=== PATIENT | male | born 1975 | race Caucasian/White ===

== ENCOUNTER 2025-04-01 12:07 | Emergency (ER) | payer MEDICAID ==
[~2025-04-01] VITALS: Ht 167.6 cm; Wt 77.0 kg
[2025-04-01 12:08] VITALS: TEMP 36.9; O2SAT 99
[2025-04-01] MEDS ORDERED: LACTATED RINGERS 1,000 ML IV SCH (12:30)
[2025-04-01 12:50] LABS: CHLORIDE 99 mEq/L (98-107); POTASSIUM 4.3 mEq/L (3.5-5.1); SODIUM 134 mEq/L (136-145)
[2025-04-01 12:51] LABS: CALCIUM 9.9 mg/dL (8.7-10.4); CARBON DIOXIDE 24 mEq/L (21-32)
[2025-04-01 12:52] LABS: EOSINOPHILS % 1.4 % (0.0-5.0); HEMATOCRIT. 39.3 % (42.0-52.0); HEMOGLOBIN. 13.6 g/dL (14.0-18.0); LYMPHOCYTES % 19.5 % (20.0-50.0); MEAN CORPUSCULAR HEMOGLOBIN 31.4 pg (28.0-32.0); MEAN CORPUSCULAR HGB CONC 34.5 g/dL (31.0-37.0); MEAN CORPUSCULAR VOLUME 91.1 fL (80.0-94.0); MEAN PLATELET VOLUME 7.5 fl (7.4-10.4); MONOCYTES % 6.6 % (2.0-8.0); NEUTROPHILS % 71.5 % (40.0-76.0); PLATELET 269 x1000/uL (130-400); RED BLOOD CELL COUNT 4.32 mill/uL (4.7-6.1); RED CELL DISTRIBUTION WIDTH 14.5 % (11.6-14.6); WHITE BLOOD COUNT 7.3 x1000/uL (4.5-11.0)
[2025-04-01 12:56] LABS: CREATININE 1.3 mg/dL (0.6-1.3); TROPONIN I HIGH SENSITIVITY 42 ng/L (3.0-53); UREA NITROGEN BLOOD 17 mg/dL (9-23)
[2025-04-01 12:58] LABS: ALANINE AMINOTRANSFERASE 41 IU/L (10-49); ALBUMIN 4.7 g/dL (3.2-4.8); ASPARTATE AMINOTRANSFERASE 26 IU/L (<34); BETA HYDROXYBUTYRATE 0.1 mMol/L (0.0-0.3); BILIRUBIN TOTAL 0.9 mg/dL (0.1-1.0)
[2025-04-01] MEDS: LACTATED RINGERS 1,000 ML IV SCH (13:17)
[2025-04-01 14:15] LABS: GLUCOSE 359 mg/dL (70-105)
[2025-04-01 15:32] VITALS: BP 101/66; PULSE 85; RESP 18; O2SAT 100
== END 2025-04-01 15:34 | disposition home or self-care (01) ==
LOC: ER 12:12
DX: E11.65 Type 2 diabetes mellitus with hyperglycemia (principal); R53.1 Weakness; Z95.5 Presence of coronary angioplasty implant and graft; I25.10 Atherosclerotic heart disease of native coronary artery without angina pectoris; Z88.8 Allergy status to other drugs, medicaments and biological substances
CPT/HCPCS: 99284; 96360; 80053; 82010; 82962; 83690; 83735; 85025; 84484; 36415; 93005; J7030

== ENCOUNTER 2025-04-05 09:18 | Inpatient (IN) | payer MEDICAID, OTHER ==
[~2025-04-05] VITALS: Ht 162.6 cm; Wt 78.9 kg
[2025-04-05] MEDS: ASPIRIN 325MG TABLET PO ONE (10:11)
[2025-04-05] MEDS: LACTATED RINGERS 1,000 ML IV SCH (10:12)
[2025-04-05] MEDS: ACETAMINOPHEN 325MG TABLET PO ONE (10:12)
[2025-04-05 10:17] LABS: BASOPHILS % 0.8 % (0.0-2.0); EOSINOPHILS % 0.9 % (0.0-5.0); HEMATOCRIT. 38.4 % (42.0-52.0); HEMOGLOBIN. 12.7 g/dL (14.0-18.0); LYMPHOCYTES % 9.3 % (20.0-50.0); MEAN CORPUSCULAR HEMOGLOBIN 31.6 pg (28.0-32.0); MEAN CORPUSCULAR HGB CONC 33.2 g/dL (31.0-37.0); MEAN CORPUSCULAR VOLUME 95.4 fL (80.0-94.0); MEAN PLATELET VOLUME 8.1 fl (7.4-10.4); MONOCYTES % 4.1 % (2.0-8.0); NEUTROPHILS % 84.9 % (40.0-76.0); PLATELET 206 x1000/uL (130-400); RED BLOOD CELL COUNT 4.03 mill/uL (4.7-6.1)
[2025-04-05 10:30] LABS: CARBON DIOXIDE 23 mEq/L (21-32); CHLORIDE 97 mEq/L (98-107); POTASSIUM 5.3 mEq/L (3.5-5.1); SODIUM 128 mEq/L (136-145)
[2025-04-05 10:31] LABS: CALCIUM 8.5 mg/dL (8.7-10.4)
[2025-04-05 10:35] LABS: CREATININE 1.4 mg/dL (0.6-1.3)
[2025-04-05 10:36] LABS: UREA NITROGEN BLOOD 18 mg/dL (9-23)
[2025-04-05 10:37] LABS: ALANINE AMINOTRANSFERASE 41 IU/L (10-49); ALBUMIN 4.2 g/dL (3.2-4.8); ASPARTATE AMINOTRANSFERASE 28 IU/L (<34)
[2025-04-05 10:38] LABS: BETA HYDROXYBUTYRATE 0.3 mMol/L (0.0-0.3); BILIRUBIN DIRECT 0.1 mg/dL (<=3.0); BILIRUBIN TOTAL 0.4 mg/dL (0.1-1.0); PROTEIN TOTAL 6.3 g/dL (6.0-8.3)
[2025-04-05 10:47] LABS: GLUCOSE > 700 mg/dL (70-105); TROPONIN I HIGH SENSITIVITY 72 ng/L (3.0-53)
[2025-04-05] MEDS: INSULIN REGULAR (HUMULIN R) 1000UNITS/10ML VIAL IV ONE (12:29)
[2025-04-05 12:45] LABS: TROPONIN I HIGH SENSITIVITY 68 ng/L (3.0-53)
[2025-04-05 14:00] VITALS: BP 138/82; PULSE 102; RESP 20; TEMP 36.6
[2025-04-05] MEDS ORDERED: ALBU18HF2 (14:34)
[2025-04-05] MEDS ORDERED: INSU100I13 SUBCUT (14:34)
[2025-04-05] MEDS ORDERED: SERT25TA74 PO (14:34)
[2025-04-05] MEDS ORDERED: LISI10TA26 PO (14:34)
[2025-04-05] MEDS ORDERED: OLAN10TA72 PO (14:34)
[2025-04-05] MEDS ORDERED: ARIP5TAB51 PO (14:34)
[2025-04-05] MEDS ORDERED: METO25TA6 PO (14:34)
[2025-04-05] MEDS ORDERED: BENZ100C86 PO (14:34)
[2025-04-05] MEDS ORDERED: ATOR40TA70 PO (14:34)
[2025-04-05] MEDS ORDERED: ASPI-1406 PO (14:34)
[2025-04-05] MEDS ORDERED: CLOP75TA33 PO (14:34)
[2025-04-05] MEDS ORDERED: NITR0.4T49 SL (14:34)
[2025-04-05] MEDS ORDERED: LOSA25TA26 PO (14:34)
[2025-04-05] MEDS ORDERED: OLAN5TAB74 PO (14:34)
[2025-04-05] MEDS ORDERED: NAPR-1164 PO (14:34)
[2025-04-05] MEDS ORDERED: CARV3.1242 PO (14:34)
[2025-04-05] MEDS ORDERED: TICA90TA PO (14:34)
[2025-04-05] MEDS ORDERED: HYDR-3992 PO (14:34)
[2025-04-05] MEDS ORDERED: METF-416 PO (14:34)
[2025-04-05] MEDS ORDERED: ONDANSETRON HCL 4MG/2ML INJ IV PRN (14:45)
[2025-04-05] MEDS ORDERED: DEXTROSE 50% WATER 50ML SYRINGE IV PRN (14:45)
[2025-04-05 16:00] VITALS: BP 138/62; PULSE 102; RESP 20; TEMP 36.6; O2SAT 98
[2025-04-05] MEDS: INSULIN LISPRO 100 UNITS/ML SUBCUT SCH ×3 (16:31→18:10)
[2025-04-05] MEDS: INSULIN GLARGINE 100 UNITS/ML SUBCUT SCH ×2 (16:32→22:52)
[2025-04-05] MEDS: BLOOD SUGAR DIAGNOSTIC STRIP TEST SCH (17:40)
[2025-04-05 20:00] VITALS: BP 160/85; PULSE 104; RESP 19; TEMP 36.9; O2SAT 97
[2025-04-06] VITALS: BP 117/61; PULSE 101; RESP 18; TEMP 36.8; O2SAT 98
[2025-04-06 04:00] VITALS: BP 121/60; PULSE 99; RESP 17; TEMP 37
[2025-04-06 08:00] VITALS: BP 139/73; PULSE 96; RESP 18; TEMP 36.5; O2SAT 99
[2025-04-06] MEDS: CLOPIDOGREL 75MG TABLET PO SCH (10:47)
[2025-04-06] MEDS: ASPIRIN 81MG TABLET PO SCH (10:48)
[2025-04-06 12:00] VITALS: BP 118/65; PULSE 91; RESP 18; TEMP 36.5; O2SAT 99
[2025-04-06] MEDS ORDERED: TICAGRELOR 90 MG TABLET PO NR (12:00)
[2025-04-06] MEDS: CARVEDILOL 3.125 MG TABLET PO NR (12:30)
[2025-04-06] MEDS: INSULIN LISPRO 100 UNITS/ML SUBCUT SCH (12:33)
[2025-04-06 13:17] LABS: CLARITY URINE CLEAR (CLEAR); COLOR URINE YELLOW (YELLOW); GLUCOSE URINE 3+ (NEGATIVE); KETONES URINE NEGATIVE (NEGATIVE); LEUKOCYTE ESTERASE URINE NEGATIVE (NEGATIVE); NITRITE URINE NEGATIVE (NEGATIVE); OCCULT BLOOD URINE NEGATIVE (NEGATIVE); PROTEIN URINE NEGATIVE (NEGATIVE)
[2025-04-06 13:57] LABS: BACTERIA URINE NONE SEEN; RBC URINE NONE SEEN /hpf (0-2); WBC URINE NONE SEEN /hpf (0-2)
[2025-04-06 14:30] LABS: CARBON DIOXIDE 25 mEq/L (21-32); CHLORIDE 98 mEq/L (98-107); POTASSIUM 4.7 mEq/L (3.5-5.1); SODIUM 130 mEq/L (136-145)
[2025-04-06 14:36] LABS: UREA NITROGEN BLOOD 14 mg/dL (9-23)
[2025-04-06] MEDS: TICAGRELOR 90 MG TABLET PO NR (15:04)
[2025-04-06 15:07] LABS: GLUCOSE 400 mg/dL (70-105)
[2025-04-06 16:00] VITALS: BP 149/85; PULSE 84; RESP 18; TEMP 36.6; O2SAT 100
[2025-04-06 20:00] VITALS: BP 124/78; PULSE 102; RESP 18; TEMP 36.7; O2SAT 96
[2025-04-06] MEDS: ATORVASTATIN CALCIUM 40MG TABLET PO SCH (21:18)
[2025-04-06] MEDS: TICAGRELOR 90 MG TABLET PO SCH (21:19)
[2025-04-06] MEDS: AMLODIPINE 2.5MG TABLET PO SCH (21:19)
[2025-04-06] MEDS: CARVEDILOL 3.125 MG TABLET PO SCH (21:20)
[2025-04-07] VITALS: BP 121/63; PULSE 88; RESP 18; TEMP 36.4; O2SAT 98
[2025-04-07 04:00] VITALS: BP 138/82; PULSE 89; RESP 20; TEMP 35.8; O2SAT 97
[2025-04-07 08:00] VITALS: BP 117/80; PULSE 83; RESP 18; TEMP 36.6; O2SAT 100
[2025-04-07 10:16] LABS: CHLORIDE 99 mEq/L (98-107); POTASSIUM 4.6 mEq/L (3.5-5.1); SODIUM 132 mEq/L (136-145)
[2025-04-07 10:17] LABS: CARBON DIOXIDE 26 mEq/L (21-32)
[2025-04-07 10:18] LABS: CALCIUM 9.2 mg/dL (8.7-10.4)
[2025-04-07 10:22] LABS: CREATININE 1.1 mg/dL (0.6-1.3); GLUCOSE 307 mg/dL (70-105)
[2025-04-07 10:23] LABS: UREA NITROGEN BLOOD 10 mg/dL (9-23)
[2025-04-07 10:40] LABS: TROPONIN I HIGH SENSITIVITY 54 ng/L (3.0-53)
[2025-04-07 12:00] VITALS: BP 118/65; PULSE 91; RESP 20; TEMP 36.5; O2SAT 99
[2025-04-07] MEDS ORDERED: INSULIN LISPRO 100 UNITS/ML SUBCUT SCH (12:30)
[2025-04-07] MEDS: INSULIN LISPRO 100 UNITS/ML SUBCUT SCH (14:38)
[2025-04-07 16:00] VITALS: BP 116/84; PULSE 99; RESP 20; TEMP 36.4; O2SAT 99
[2025-04-07 16:02] LABS: BASOPHILS % 0.6 % (0.0-2.0); EOSINOPHILS % 1.5 % (0.0-5.0); HEMATOCRIT. 41.6 % (42.0-52.0); MEAN CORPUSCULAR HEMOGLOBIN 31.6 pg (28.0-32.0); MEAN CORPUSCULAR HGB CONC 33.7 g/dL (31.0-37.0); MEAN CORPUSCULAR VOLUME 93.9 fL (80.0-94.0); MEAN PLATELET VOLUME 7.8 fl (7.4-10.4); MONOCYTES % 5.6 % (2.0-8.0); NEUTROPHILS % 73.3 % (40.0-76.0); PLATELET 218 x1000/uL (130-400); RED BLOOD CELL COUNT 4.43 mill/uL (4.7-6.1); RED CELL DISTRIBUTION WIDTH 14.5 % (11.6-14.6); WHITE BLOOD COUNT 6.6 x1000/uL (4.5-11.0)
[2025-04-07 16:10] LABS: CHLORIDE 94 mEq/L (98-107); POTASSIUM 4.5 mEq/L (3.5-5.1); SODIUM 127 mEq/L (136-145)
[2025-04-07 16:11] LABS: CARBON DIOXIDE 23 mEq/L (21-32)
[2025-04-07 16:16] LABS: CREATININE 1.2 mg/dL (0.6-1.3); UREA NITROGEN BLOOD 12 mg/dL (9-23)
[2025-04-07 16:26] LABS: GLUCOSE 577 mg/dL (70-105)
[2025-04-07 20:00] VITALS: BP 129/75; PULSE 95; RESP 18; TEMP 36.4; O2SAT 98
[2025-04-07] MEDS: SODIUM CHLORIDE 0.9% 1,000 ML IV SCH (23:04)
[2025-04-08] VITALS: BP 120/81; PULSE 91; RESP 18; TEMP 36.6; O2SAT 99
[2025-04-08] MEDS ORDERED: MELATONIN 3MG TABLET PO PRN
[2025-04-08] MEDS: MELATONIN 3MG TABLET PO PRN (00:08)
[2025-04-08 04:00] VITALS: BP 120/77; PULSE 78; RESP 18; TEMP 36.5; O2SAT 98
[2025-04-08 07:32] LABS: CHLORIDE 100 mEq/L (98-107); POTASSIUM 4.5 mEq/L (3.5-5.1); SODIUM 134 mEq/L (136-145)
[2025-04-08 07:33] LABS: CALCIUM 8.9 mg/dL (8.7-10.4); CARBON DIOXIDE 24 mEq/L (21-32)
[2025-04-08 07:38] LABS: UREA NITROGEN BLOOD 11 mg/dL (9-23)
[2025-04-08 07:43] LABS: BASOPHILS % 0.4 % (0.0-2.0); EOSINOPHILS % 2.5 % (0.0-5.0); GLUCOSE 309 mg/dL (70-105); HEMATOCRIT. 38.4 % (42.0-52.0); HEMOGLOBIN. 13.2 g/dL (14.0-18.0); LYMPHOCYTES % 18.9 % (20.0-50.0); MEAN CORPUSCULAR HEMOGLOBIN 31.3 pg (28.0-32.0); MEAN CORPUSCULAR HGB CONC 34.4 g/dL (31.0-37.0); MEAN CORPUSCULAR VOLUME 90.8 fL (80.0-94.0); MONOCYTES % 6.4 % (2.0-8.0); NEUTROPHILS % 71.8 % (40.0-76.0); PLATELET 195 x1000/uL (130-400); RED BLOOD CELL COUNT 4.23 mill/uL (4.7-6.1); RED CELL DISTRIBUTION WIDTH 14.4 % (11.6-14.6); WHITE BLOOD COUNT 6.7 x1000/uL (4.5-11.0)
[2025-04-08 08:00] VITALS: BP 118/78; PULSE 91; RESP 20; TEMP 36.7; O2SAT 98
[2025-04-08] MEDS ORDERED: ACETAMINOPHEN 325MG TABLET PO PRN (10:00)
[2025-04-08] MEDS: INSULIN LISPRO 100 UNITS/ML SUBCUT NR (11:23)
[2025-04-08] MEDS ORDERED: INSU100I28 SQ (11:29)
[2025-04-08 12:00] VITALS: BP 101/57; PULSE 88; RESP 18; TEMP 36.8; O2SAT 100
[2025-04-08] MEDS: EZETIMIBE 10MG TABLET PO SCH (14:17)
[2025-04-08 16:00] VITALS: BP 131/83; PULSE 85; RESP 20; TEMP 36.5; O2SAT 97
[2025-04-08] MEDS ORDERED: AMLO2.5T2 MT (16:37)
[2025-04-08] MEDS ORDERED: ASPI-1497 MT (16:37)
[2025-04-08] MEDS ORDERED: TICA90TA MT (16:37)
[2025-04-08] MEDS ORDERED: COR3 MT (16:37)
[2025-04-08] MEDS ORDERED: LIP40 MT (16:37)
[2025-04-08 17:43] VITALS: BP 131/83; PULSE 85; TEMP 97.7; O2SAT 97
[2025-04-09] MEDS ORDERED: AMLODIPINE 2.5MG TABLET PO SCH (09:00)
[2025-04-09] MEDS ORDERED: LISINOPRIL 2.5MG TABLET PO SCH (09:00)
== END 2025-04-08 18:00 | disposition home or self-care (01) | DRG 203 ==
LOC: ER 09:18 → EDBEDREQ 09:57 → 5WST 11:46 → EDBEDREQ 11:48 → ENRESERV 11:54 → 5WST 04-07 16:00
PROVIDERS: ADMIT Internal Medicine; ATTEND Internal Medicine
DX: M94.0 Chondrocostal junction syndrome [Tietze] (principal); N17.9 Acute kidney failure, unspecified; D64.9 Anemia, unspecified; E11.65 Type 2 diabetes mellitus with hyperglycemia; E78.5 Hyperlipidemia, unspecified; F10.20 Alcohol dependence, uncomplicated; R07.89 Other chest pain; I25.10 Atherosclerotic heart disease of native coronary artery without angina pectoris; F17.290 Nicotine dependence, other tobacco product, uncomplicated; Y90.9 Presence of alcohol in blood, level not specified; I10 Essential (primary) hypertension; R79.89 Other specified abnormal findings of blood chemistry; I25.2 Old myocardial infarction; Z88.8 Allergy status to other drugs, medicaments and biological substances; Z79.02 Long term (current) use of antithrombotics/antiplatelets; Z79.82 Long term (current) use of aspirin; Z79.899 Other long term (current) drug therapy; Z86.73 Personal history of transient ischemic attack (TIA), and cerebral infarction without residual deficits; Z95.5 Presence of coronary angioplasty implant and graft
CPT/HCPCS: 36415; 71045; 80048; 80076; 81003; 82010; 82962; 83036; 84484; 85025; 85379; 93005; 93306; 99291; J1815; J7030; J8499